=== PATIENT | male | born 1955 | race Caucasian/White ===

== ENCOUNTER 2021-03-30 03:17 | Emergency (ER) | payer MEDICARE, OTHER ==
[~2021-03-30 03:17] MED LIST: ZOFRAN4 MG PO
[2021-03-30] MEDS ORDERED: TESSALON PERLE100 MG PO (06:14)
[2021-03-30] MEDS ORDERED: PREDNISONE20 MG PO (06:14)
== END 2021-03-30 06:21 | disposition home or self-care (01) ==
LOC: ER1 03:17
DX: J44.1 Chronic obstructive pulmonary disease with (acute) exacerbation (principal); Z87.891 Personal history of nicotine dependence
CPT/HCPCS: 71045; 94664; 99283

== ENCOUNTER 2021-04-23 14:55 | Emergency (ER) | payer MEDICARE, OTHER ==
[~2021-04-23 14:55] MED LIST changes: +PREDNISONE20 MG PO; +TESSALON PERLE100 MG PO
[2021-04-23 16:55] LABS: HEMOGLOBIN 15.1 gm/dl (14.0-17.5); RED BLOOD COUNT 4.78 M/UL (4.20-5.50)
[2021-04-23 17:20] LABS: BUN/CREATININE RATIO 28 (0-10)
[2021-04-23] MEDS ORDERED: TESSALON PERLE100 MG PO (17:32)
[2021-04-23] MEDS ORDERED: LEVOFLOXACIN500 MG PO (17:32)
== END 2021-04-23 17:05 | disposition home or self-care (01) ==
LOC: ER1 14:55
PROVIDERS: Internal Medicine
DX: J42 Unspecified chronic bronchitis (principal); E11.9 Type 2 diabetes mellitus without complications; I10 Essential (primary) hypertension; F17.210 Nicotine dependence, cigarettes, uncomplicated; Z90.49 Acquired absence of other specified parts of digestive tract
CPT/HCPCS: 71046; 80053; 85025; 94664; 99284

== ENCOUNTER → 2021-06-07 | Outpatient (CLI) | payer MEDICARE, OTHER ==
[~2021-06-07] MED LIST changes: +ATROVENT-HFA12.9 GM INH; +DOXYCYCLINE HY100 M2 PO; +LEVOFLOXACIN500 MG PO; +PREDNISONE 20 M20 MG PO; +PROAIR HFA8.5 GM INH
== END ==
LOC: KOH-I 13:18
DX: M25.551 Pain in right hip (principal)
CPT/HCPCS: 73502

== ENCOUNTER 2021-07-01 01:12 | Emergency (ER) | payer MEDICARE, OTHER ==
[~2021-07-01 01:12] MED LIST changes: -ATROVENT-HFA12.9 GM INH; -DOXYCYCLINE HY100 M2 PO; -PREDNISONE 20 M20 MG PO; -PROAIR HFA8.5 GM INH
[2021-07-01 02:24] LABS: HEMOGLOBIN 15.3 gm/dl (14.0-17.5); RED BLOOD COUNT 4.82 M/UL (4.20-5.50); WHITE BLOOD COUNT 14.6 K/UL (4.5-11.0)
[2021-07-01 03:00] LABS: BUN/CREATININE RATIO 20 (0-10)
[2021-07-01] MEDS ORDERED: PROAIR HFA8.5 GM INH (05:14)
[2021-07-01] MEDS ORDERED: DOXYCYCLINE HY100 M2 PO (05:14)
[2021-07-01] MEDS ORDERED: PREDNISONE 20 M20 MG PO (05:14)
[2021-07-01] MEDS ORDERED: ATROVENT-HFA12.9 GM INH (05:14)
== END 2021-07-01 06:35 | disposition home or self-care (01) ==
LOC: ER1 01:12
PROVIDERS: Physician Assistant
DX: J40 Bronchitis, not specified as acute or chronic (principal); E11.9 Type 2 diabetes mellitus without complications; I10 Essential (primary) hypertension; F17.200 Nicotine dependence, unspecified, uncomplicated; Z20.822 Contact with and (suspected) exposure to COVID-19
CPT/HCPCS: 0240U; 71045; 80053; 82550; 82553; 83874; 83880; 84484; 85025; 85379; 93005; 94640; 94664; 94760; 96374; 99285; J2930; Q9967